=== PATIENT | male | born 1955 | race Two or more races ===

== ENCOUNTER 2024-05-05 15:06 | Observation (INO) | payer OTHER, MEDICAID, MEDICARE, SELFPAY ==
[2024-05-05] VITALS (21 sets, daily range): BP systolic 123–215; BP diastolic 68–103; PULSE 56–74; RESP 16–95; TEMP 35.9–36.9; O2SAT 95–99; BMI 28.3
--- NOTE | 2024-05-05 15:20 | XR_ITS ---
Examination: AP chest single view Technique one AP portable sitting chest single view Exam date and time: May 05, 2024 1613 hours Comparison October 08, 2023 INDICATIONS: Syncope today. FINDINGS: Moderate CHF Mild enlargement cardiac contour Prominent vascular congestion with perihilar basilar edema Prominent osteopenia IMPRESSION: Moderate CHF
--- NOTE | 2024-05-05 15:21 | EDNOTE_ITS ---
ED General RME/HPI General Chief complaint: Syncope / Near Syncope Stated complaint: SYNCOPE Time Seen by Provider: 05/05/24 15:20 Arrival date/time: 05/05/24 15:06 CC: Syncope generalized weakness HPI patient presents to the ER via EMS report the patient had a syncopal event prior to dialysis, refused initial EMS response for coming to the emergency room however things family members convinced the patient to come in for generalized weakness. EMS reports stable vital signs with a mild bit of bradycardia EMS also report informing the patient is a full code but is considering become a DNR as he does not like the way dialysis makes him feel weak after dialysis. Patient has missed dialysis on Sunday per report from family members and now is missed today. The patient is awake alert stating that he has only chronic right shoulder pain and chronic back pain. 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 Related Data Home Medications ?Medication ?Instructions ?Recorded ?Confirmed allopurinol 100 mg tablet 100 mg PO QDAY 10/31/22 02/11/24 tamsulosin 0.4 mg capsule 0.4 mg PO QDAY 10/31/22 02/11/24 folic acid 1 mg tablet 1 mg PO QDAY 12/19/23 02/11/24 furosemide 40 mg tablet 40 mg PO QAM 12/19/23 02/11/24 gabapentin 400 mg capsule 400 mg PO BID 12/19/23 02/11/24 vitamin B complex-vitamin C-folic 1 tab PO QDAY 12/19/23 02/11/24 acid 0.8 mg tablet (Nydia-Seun) insulin glargine 100 unit/mL (3 25 unit subcut QA 02/11/24 02/11/24 mL) subcutaneous pen (Lantus Solostar U-100 Insulin) lisinopril 5 mg tablet 5 mg PO QDAY 02/11/24 02/11/24 Previous Rx's ?Medication ?Instructions ?Recorded pantoprazole 40 mg tablet,delayed 40 mg PO QDAY #0 tabs 08/22/22 release atorvastatin 80 mg tablet 80 mg PO QPM #30 tabs 12/25/23 clopidogrel 75 mg tablet (Plavix) 75 mg PO QDAY #30 tabs 12/25/23 hydralazine 10 mg tablet 10 mg PO BID PRN hypertension #60 12/25/23 tabs insulin glargine 100 unit/mL (3 27 unit (0.27 mL) subcut QPM #15 mL 12/25/23 mL) subcutaneous pen (Lantus Solostar U-100 Insulin) insulin lispro 100 unit/mL 6 unit (0.06 mL) subcut TID #10 mL 12/25/23 subcutaneous solution (Admelog U-100 Insulin lispro) levetiracetam 500 mg tablet 500 mg PO BID #60 tabs 12/25/23 Allergies Allergy/AdvReac Type Severity Reaction Status Date / Time No Known Allergies Allergy Verified 12/25/23 13:27 Review of Systems Review of Systems Narrative Review of Systems: GEN: No fever, no chills, no weight loss EYES: No discharge, no visual changes, no pain HEENT: No ear pain, no congestion, no sore throat PULM: No shortness of breath, no cough, no congestion CV: No chest pain, no dyspnea on exertion, no palpitations GI: No nausea, no vomiting, no diarrhea, no pain, no constipation : No frequency, no urgency, no dysuria MUSC/SKEL: No joint pain, no back pain SKIN: No rash PSYCH: No hallucinations, no depression HEME/LYMPH: No easy bleeding or bruising tendencies NEURO: + weakness, no headache Past Medical History Past Medical History NEUROLOGIC: Positive Neurological Disorders, Cerebrovascular Accident and Seizures CARDIAC: Positive Cardiac Disorders, Hypercholesterolemia, Congestive Heart Failure, Edema and Hypertension RESPIRATORY: Positive Pneumonia; Negative Chronic Obstructive Pulmonary Disease (COPD) GASTROINTESTINAL: Positive Gastrointestinal Disorders, Pancreatitis and Gastroesophageal Reflux Disease; Negative Hepatitis GENITOURINARY: Positive Genitourinary Disorders, Renal Disease, Dialysis and Benign Prostatic Hyperplasia MUSCULOSKELETAL: Positive Musculoskeletal Disorders and Gout ENDOCRINE: Positive Endocrine Disorders and Diabetes Mellitus Type 2; Negative Diabetes Mellitus Type 1 HEMATOLOGIC: Positive Blood Disorders and Anemia PSYCHO/SOCIAL: Positive Recreational Drug Use and Anxiety OTHER HISTORY: Positive Hospitalization, Shingles, Chicken Pox and Measles; Negative Autoimmune Disease, Blood Transfusions, Blood Transfusion Reaction, Anesthesia Reactions or Cancer Family History FAMILY HISTORY: Negative Family Psychiatric Problems, Family Respiratory Disorders, Family Cardiac Disorders, Family Gastrointestinal Problems, Family Cancer, Family Surgery or Family Anesthesia Reaction Social History SMOKING STATUS: Former smoker SUBSTANCE USE: does not use ED Exam Narrative Physical exam: [General: Not in any acute distress Head normocephalic HEENT: Within acceptable limits Neck is supple nontender Chest equal chest rise nontender to palpation Respiratory: Clear to auscultation no wheezes crackles or rubs CV: Rate rhythm is regular no murmurs rubs or clicks Abdomen is distended secondary to body habitus soft nontender no masses positive bowel sounds all 4 quadrants Back: No CVA tenderness no spinous process tenderness from cervical spine thoracic and lumbar spine Skin: Intact no petechiae rash induration ulceration or crepitus Extremities: Moving all extremity against resistance cap refill less than 2 seconds neurosensory intact. Bilateral lower extremity edema. Neuro: Awake alert oriented x3 Glascow coma 15 no focal deficits] Course Course Course Narrative: CC: Patient states shows a significant hyperkalemia 6.0 with a creatinine of 6.9 a BUN of 110, patient's case discussed with Dr. Hathaway who states that the patient wishes dialysis the patient to be put and she will consult for inpatient dialysis. Patient has agreed to the plan patient's case discussed with Dr. Chu who agrees to accept the patient for admission. Quality Measures none Orders Category Date Time Status EKG (ED ONLY) *Do not use* NOW Care 05/05/24 15:20 Completed Consult to Nephrology Stat Cons 05/05/24 17:41 Ordered EKG (ED Only) Stat Exams 05/05/24 15:20 Ordered XR chest 1V Stat Exams 05/05/24 15:20 Completed B-Type Natriuretic Peptide Stat Lab 05/05/24 16:06 Completed CBC Stat Lab 05/05/24 16:06 Completed Comprehensive Metabolic Panel Stat Lab 05/05/24 16:06 Completed Drug Screen,Urine Stat Lab 05/05/24 15:57 Completed LDH (Lactate Dehydrogenase) Stat Lab 05/05/24 16:06 Completed Magnesium Stat Lab 05/05/24 16:06 Completed Partial Thromboplastin Time Stat Lab 05/05/24 16:06 Completed Prothrombin Time with INR Stat Lab 05/05/24 16:06 Completed Troponin I Stat Lab 05/05/24 16:06 Completed Urinalysis Stat Lab 05/05/24 15:57 Completed Calcium Gluconate 10% Inj Med 05/05/24 17:28 Discontinued 1 gm IV X1 ONE Dextrose 50% Syr [D50w Syringe Abboject] Med 05/05/24 17:53 Discontinued 50 ml IV X1 ONE Insulin Regular Med 05/05/24 17:28 Discontinued 5 unit IV X1 ONE Vital Signs Vital signs: Vital Signs Temperature 97.5 F 05/05/24 15:07 Pulse Rate 56 L 05/05/24 15:07 Respiratory Rate 16 05/05/24 15:07 Blood Pressure 138/70 H 05/05/24 15:07 Pulse Oximetry (%) 97 05/05/24 15:07 Oxygen Delivery Method Room Air 05/05/24 15:07 [facility] Patient data External records reviewed:: [facility] previous records and EMS form Clinical information provided by:: patient and EMS Social determinants that could affect healthcare access:: none Patient has the following chronic illnesses:: ESRD dialysis A-fib diabetes renal failure How is presenting disease/condition affected by chronic disease/condition?: e xacerbated by Evaluation data The following diagnostics were reviewed and interpreted by me:: lab results, radiology exam(s) and EKG tracing(s) Lab and/or radiology exams considered but not ordered:: CBC shows stable anemia no leukocytosis or thrombocytopenia CMP shows significant electrolyte imbalances including hyperkalemia at 6.0, BUN greater than 110 and a creatinine of 6.9. No transaminitis or T. bili elevation Troponin is negative Interpretation Summary: Patient's case discussed with Dr. Hathaway, who agrees to consult for nephrology, Dr. Chu agrees to accept the patient for admission Medications Medications considered but not ordered:: None Medication administrations:: Medication Administration History Acetaminophen (Acetaminophen 325 Mg Tablet) 650 mg PO Q6H PRN PRN Reason: Pain (1-4) and Fever >101.5 Stop: 06/04/24 18:23 Allopurinol (Allopurinol 100 Mg Tablet) 100 mg PO DAILY AROLDO Stop: 06/05/24 08:59 Last Admin: 05/06/24 09:50 Dose: 100 mg Documented By: ISAÍAS Atorvastatin Calcium (Atorvastatin Calcium 20 Mg Tablet) 80 mg PO HS AROLDO Stop: 06/04/24 20:59 Last Admin: 05/05/24 23:16 Dose: 80 mg Documented By: SIM Clopidogrel Bisulfate (Clopidogrel Bisulfate 75 Mg Tablet) 75 mg PO DAILY AROLDO Stop: 06/05/24 08:59 Last Admin: 05/06/24 08:15 Dose: 75 mg Documented By: ISAÍAS Dextrose (Dextrose 50%-Water Inj 50 Ml Syringe) 25 ml IV Q15MIN PRN PRN Reason: BG 50-70 responsive npo pt Stop: 06/04/24 19:12 Dextrose (Dextrose 50%-Water Inj 50 Ml Syringe) 50 ml IV Q15MIN PRN PRN Reason: BG <50 OR BG <70 & pt unresponsive Stop: 06/04/24 19:12 Furosemide (Furosemide 40 Mg Tablet) 40 mg PO QDAY AROLDO Stop: 06/04/24 18:29 Last Admin: 05/06/24 08:15 Dose: 40 mg Documented By: Admin: 05/05/24 23:33 Dose: 40 mg Documented By: SIM Gabapentin (Gabapentin 300 Mg Capsule) 300 mg PO BID [facility] Stop: 06/04/24 20:59 Last Admin: 05/06/24 08:14 Dose: 300 mg Documented By: Admin: 05/05/24 23:16 Dose: 300 mg Documented By: SIM Glucagon (Glucagon Inj 1 Mg Vial) 1 mg IM Q15MIN PRN PRN Reason: BG <70, and no IV access Insulin Glargine (Insulin Glargine (Lantus) 5 Unit/0.05 Ml (Per 5 Units)) 20 unit SC [facility] Stop: 06/05/24 20:59 Insulin Human Lispro (Insulin Lispro (Admelog) 1 Unit/0.01 Ml Unit) 0 unit SC AC [facility]; Protocol Stop: 06/05/24 11:29 Insulin Human Lispro (Insulin Lispro (Admelog) 1 Unit/0.01 Ml Unit) 3 unit SC AC [facility] Stop: 06/05/24 08:14 Last Admin: 05/06/24 08:19 Dose: 3 unit Documented By: ISAÍAS Co-signed By: EITAN Levetiracetam (Levetiracetam 250 Mg Tablet) 500 mg PO BID [facility] Stop: 06/04/24 20:59 Last Admin: 05/06/24 08:16 Dose: 500 mg Documented By: Admin: 05/05/24 23:16 Dose: 500 mg Documented By: SIM Ondansetron HCl (Ondansetron Inj 2 Mg/Ml Inj 2 Ml) 4 mg IV Q6H PRN; Protocol PRN Reason: NAUSEA OR VOMITING Stop: 06/04/24 18:23 Pantoprazole Sodium (Pantoprazole 40 Mg Tablet) 40 mg PO DAILY AROLDO Stop: 06/05/24 08:59 Last Admin: 05/06/24 08:16 Dose: 40 mg Documented By: ISAÍAS Discontinued Medications Calcium Gluconate (Calcium Gluconate 10% Inj 1 Gm/10 Ml Vial) 1 gm IV X1 ONE Stop: 05/05/24 17:29 Last Admin: 05/05/24 17:46 Dose: 1 gm Documented By: RADHA Comments: pushed over 3 minutes Clonidine (Clonidine Hcl 0.1 Mg Tablet) 0.2 mg PO X1 ONE Stop: 05/05/24 21:36 Last Admin: 05/05/24 21:39 Dose: 0.2 mg Documented By: MM Dextrose (Dextrose 50%-Water Inj 50 Ml Syringe) 50 ml IV X1 ONE Stop: 05/05/24 17:54 Last Admin: 05/05/24 17:56 Dose: 50 ml Documented By: RADHA Epoetin Shiraz (Epoetin Shiraz-Epbx Inj 10,000 Unit/Ml Vial (Esrd)) 10,000 unit SC X1 ONE Stop: 05/05/24 18:40 Last Admin: 05/06/24 07:06 Dose: Not Given Documented By: SIM Non-Admin Reason: Discontinued Heparin Sodium (Porcine) (Heparin Sod Inj 5000 Unit/Ml Vial) 5,000 unit SC Q8HR [facility] Stop: 05/19/24 21:59 Insulin Glargine (Insulin Glargine (Lantus) 5 Unit/0.05 Ml (Per 5 Units)) 15 unit SC HS [facility] Stop: 06/04/24 20:59 Last Admin: 05/05/24 23:36 Dose: 15 unit Documented By: SIM Co-signed By: Insulin Human Lispro (Insulin Lispro (Admelog) 1 Unit/0.01 Ml Unit) 3 unit SC TIDWM [facility] Stop: 06/05/24 07:59 Last Admin: 05/06/24 08:18 Dose: Not Given Documented By: ISAÍAS Non-Admin Reason: Discontinued Insulin Human Lispro (Insulin Lispro (Admelog) 1 Unit/0.01 Ml Unit) 0 unit SC ACHS [facility]; Protocol Stop: 06/04/24 20:59 Last Admin: 05/06/24 08:18 Dose: Not Given Documented By: ISAÍAS Non-Admin Reason: Discontinued Admin: 05/05/24 23:11 Dose: Not Given Documented By: SIM Non-Admin Reason: Per Protocol Insulin Human Regular (Insulin Hum Regular 1 Unit/0.01 Ml (Per Unit)) 5 unit IV X1 ONE Stop: 05/05/24 17:29 Last Admin: 05/05/24 17:41 Dose: 5 unit Documented By: RADHA Co-signed By: LOIDA None Consultations Consultation(s) initiated? (list below): Yes Consultation #1 (Physician, Specialty, Details): Mag Time: 17:43 Diagnosis Differential Diagnosis ED Complaint MDM: ESRD dialysis hyperkalemia Most likely diagnosis given after review of the tests above:: ESRD dialysis hyperkalemia Admission Indicated Admission indicated?: indicated Explain why admission is indicated or not indicated:: Quires further medical management Admission Request Was there a request for admission?: No Disposition Plan Disposition Plan: Admit Medical Decision Making Differential Diagnosis Differential Diagnosis: ESRD dialysis hyperkalemia Lab Data 05/06/24 04:37 05/06/24 04:37 Labs: Lab Results 05/05/24 05/05/24 Range/Units 15:57 16:06 WBC 4.0 (3.8-10.6) Thou/mm3 RBC 3.32 L (4.50-5.90) Miln/mm3 Hgb 10.0 L (13.5-16.0) g/dL Hct 29.9 L (41.0-53.0) % MCV 90 (80-100) fL MCH 30.1 (25.0-35.0) pg MCHC 33.4 (31.0-37.0) g/dl RDW Std Deviation 48.9 H (35.1-43.9) fL Plt Count 72 L (140-440) Thou/mm3 Neut % (Auto) 64 (37-80) % Lymph % (Auto) 23 (10-50) % [place] % (Auto) 9 (0-12) % Eos % (Auto) 3 (0-10) % Baso % (Auto) 1 (0-2.5) % Neut # (Auto) 2.6 (1.8-7.7) Thou/mm3 Lymph # (Auto) 0.9 L (1.0-4.8) Thou/mm3 [place] # (Auto) 0.4 (0.0-0.8) Thou/mm3 Eos # (Auto) 0.1 (0.0-0.5) Thou/mm3 Baso # (Auto) 0.0 (0.0-0.2) Thou/mm3 Immature Gran # (Auto) 0.00 (0.00-0.00) Thou/mm3 Absolute Nucleated RBC 0.00 (0.00-0.00) Thou/mm3 Immature Gran % 0 (0-0) % Nucleated RBC % 0 (0) /100 WBC PT 12.0 (9.0-12.2) Seconds INR 1.1 (0.9-1.3) APTT 31.6 (22.0-36.0) Seconds Sodium 132 L (136-145) mMol/L Potassium 6.0 H (3.4-5.1) mMol/L Chloride 100 (98-107) mMol/L Carbon Dioxide 17.9 L (20.0-31.0) mMol/L Anion Gap 14 (7-16) BUN 112 H* (9-23) mg/dL Creatinine 6.9 H* (0.6-1.3) mg/dL Estim Creat Clear Calc Not Performed. eGFR 8 L* (60 - ) See Note BUN/Creatinine Ratio 16 (12-20) Ratio Glucose 300 H (74-106) mg/dL Calculated Osmolality 311 H (275-295) Calcium 9.2 (8.3-10.6) mg/dL Corrected Calcium 9.2 (8.5-10.1) mg/dL Magnesium 2.8 H (1.6-2.6) mg/dL Total Bilirubin 0.6 (0.3-1.2) mg/dL AST 49 H (0-34) U/L ALT 67 H (10-49) U/L Alkaline Phosphatase 523 H (46-116) U/L Lactate Dehydrogenase 268 H (120-246) U/L Troponin I 0.034 (0.0-0.045) ng/mL B-Natriuretic Peptide 873 H* (0-100) pg/mL Total Protein 7.6 (5.7-8.2) gm/dL Albumin 4.3 (3.4-4.8) gm/dL Globulin 3.3 (2.3-3.5) gm/dL Albumin/Globulin Ratio 1.3 (1.2-2.2) Ur Collection Type Clean Catch Urine Color Yellow (Lt Yel-Yel) Urine Clarity Hazy (Clear/Hazy) Urine pH 5.5 (5.0-7.0) Ur Specific [place] 1.021 (1.001-1.035) Urine Protein 3+ A (Neg - Trace) Urine Glucose (UA) 1+ A (Negative) Urine Ketones Negative (Negative) Urine Blood Negative (Negative) Urine Nitrite Negative (Negative) Urine Bilirubin Negative (Negative) Urine Urobilinogen (Auto) Negative (0.0-1.0) mg/dL Ur Leukocyte Esterase Negative (Negative) Urine RBC 6 H (0-3) /hpf Urine WBC 1 (0-5) /hpf Ur Squamous Epith Cells < 1 (0-5) /hpf Ur Transition Epith Cell < 1 (0-5) /hpf Amorphous Crystals Present A (Absent) Urine Bacteria None (None) Hyaline Casts 1 (0-1) /hpf Urine Sperm Present A (None) Urine Opiates Screen Negative (Negative) Urine Fentanyl Screen Negative (Negative) Ur Barbiturates Screen Negative (Negative) U Amphetamin/Meth Scrn Negative (Negative) U Benzodiazepines Scrn Negative (Negative) U Cocaine Metab Screen Negative (Negative) U Marijuana (THC) Screen Negative (Negative) Misc Test Result Platelets confirmed Discharge Plan Plan Patient Disposition: Other Care w/in Hosp ([facility]) Patient condition on transfer: Stable Problem List Clinical Impression: ESRD (end stage renal disease) MD Attestation MD Attestation The patient was seen by the midlevel practitioner. I, the co-signing physician, was present during the entire ER visit. While I did not physically examine the patient, I was available for consultation as needed.
--- NOTE | 2024-05-05 15:46 | PC.NURSE ---
Brought in by EMS s/p syncopal episode at the dialysis center; per report, pt denies LOC, but per bystanders, pt's eyes rolled back. Pt has hx of 4 CVAs in the past, DM, hyperlipidemia, and renal failure. Pt has fistula to L arm for dialysis, but per daughter at bedside, he hasn't received dialysis in 7 days. He missed his dialysis today too because he passed out. Pt connected to monitors at this time.
[2024-05-05 16:15] LABS: Collection Type, Urine Clean Catch
--- NOTE | 2024-05-05 16:17 | PC.NURSE ---
Daughter at bedside, Gailmagi Howard; per daughter, my dad's daily fluid limit intake is 2 Liters. My dad is also DNR for his code status.
[2024-05-05 16:21] LABS: Basophils % (Auto) 1 % (0-2.5); Eosinophils # (Auto) 0.1 Thou/mm3 (0.0-0.5); Eosinophils % (Auto) 3 % (0-10); Hematocrit 29.9 % (41.0-53.0); Immature Granulocytes % (Auto) 0 % (0-0); Lymphocytes # (Auto) 0.9 Thou/mm3 (1.0-4.8); Lymphocytes % (Auto) 23 % (10-50); Mean Corpuscular HGB Conc 33.4 g/dl (31.0-37.0); Mean Corpuscular Hemoglobin 30.1 pg (25.0-35.0); Mean Corpuscular Volume 90 fL (80-100); Monocytes # (Auto) 0.4 Thou/mm3 (0.0-0.8); Monocytes % (Auto) 9 % (0-12); Neutrophils # (Auto) 2.6 Thou/mm3 (1.8-7.7); Neutrophils % (Auto) 64 % (37-80); Nucleated Red Blood Cell % 0 /100 WBC (0); RDW Standard Deviation 48.9 fL (35.1-43.9); Red Blood Count 3.32 Miln/mm3 (4.50-5.90)
[2024-05-05 16:29] LABS: Platelet Count 72 Thou/mm3 (140-440)
[2024-05-05 16:35] LABS: INR 1.1 (0.9-1.3); Partial Thromboplastin Time 31.6 Seconds (22.0-36.0)
[2024-05-05 16:37] LABS: Amphetamine/Methamp Scrn,U Negative (Negative); Barbiturate Screen,Urine Negative (Negative); Benzodiazepines Screen,Urine Negative (Negative); Benzoylecgonine Screen, Ur Negative (Negative); Fentanyl Screen,Urine Negative (Negative); Opiate Screen,Urine Negative (Negative); THC Screen,Urine Negative (Negative)
[2024-05-05 16:38] LABS: Amorphous Crystals,Urine Present (Absent); Bilirubin,Urine Negative (Negative); Blood,Urine Negative (Negative); Color,Urine Yellow (Lt Yel-Yel); Glucose, Urine 1+ (Negative); Hyaline Casts,Urine 1 /hpf (0-1); Ketones,Urine Negative (Negative); Leukocyte Esterase,Urine Negative (Negative); Nitrite,Urine Negative (Negative); PH,Urine 5.5 (5.0-7.0); Protein,Urine 3+ (Neg - Trace); RBC,Urine 6 /hpf (0-3); Specific Gravity,Urine 1.021 (1.001-1.035); Squamous Epithelial Cell,Urine < 1 /hpf (0-5); Transitional Epi Cells,Urine < 1 /hpf (0-5); Urobilinogen,Urine Negative mg/dL (0.0-1.0); WBC,Urine 1 /hpf (0-5)
[2024-05-05 16:42] LABS: Clarity,Urine Hazy (Clear/Hazy); Sperm,Urine Present
[2024-05-05 16:45] LABS: B-Type Natriuretic Peptide 873 pg/mL (0-100)
[2024-05-05 16:50] LABS: Alanine Aminotransferase 67 U/L (10-49); Albumin, Serum 4.3 gm/dL (3.4-4.8); Albumin/Globulin Ratio 1.3 (1.2-2.2); Alkaline Phosphatase 523 U/L (46-116); Anion Gap 14 (7-16); Aspartate Amino Transferase 49 U/L (0-34); BUN/Creatinine Ratio 16 Ratio (12-20); Bilirubin,Total 0.6 mg/dL (0.3-1.2); Calcium 9.2 mg/dL (8.3-10.6); Calcium (Corrected) 9.2 mg/dL (8.5-10.1); Carbon Dioxide 17.9 mMol/L (20.0-31.0); Chloride 100 mMol/L (98-107); Creatinine (Component) 6.9 mg/dL (0.6-1.3); Globulin 3.3 gm/dL (2.3-3.5); Glucose 300 mg/dL (74-106); LDH (Lactate Dehydrogenase) 268 U/L (120-246); Magnesium 2.8 mg/dL (1.6-2.6); Osmolality,Calculated 311 (275-295); Sodium 132 mMol/L (136-145); Total Protein 7.6 gm/dL (5.7-8.2); Troponin I 0.034 ng/mL (0.0-0.045); eGFR 8 See Note
[2024-05-05 16:57] LABS: Slide Review Platelets confirmed
[2024-05-05 17:09] LABS: Blood Urea Nitrogen 112 mg/dL (9-23)
[2024-05-05] MEDS: INSULIN HUM REGULAR 1 UNIT/0.01 ML (PER UNIT) 5 UNIT IV (17:41)
[2024-05-05] MEDS: CALCIUM GLUCONATE 10% INJ 1 GM/10 ML VIAL IV (17:46)
[2024-05-05] MEDS: DEXTROSE 50%-WATER INJ 50 ML SYRINGE IV (17:56)
--- NOTE | 2024-05-05 19:19 | PD.RESHP ---
Documentation for date of: 05/05/24 HPI History of Present Illness History of present illness: The patient is a 69-year-old male with a past medical history of hypertension, hyperlipidemia, diabetes, ESRD on dialysis M/F, seizure disorder, CVA who was brought into the ED on 05/05/2024 after he was said to have this syncopal episode prior to dialysis. Per patient, he denies fainting and states that he only felt unsteady for a bit but family members are convinced that the patient had a syncopal episode and insisted that he be brought in to ED for generalized weakness. Patient had missed his dialysis session on Sunday due to these incidents has missed a session today. On interview with the patient, he denies any symptoms states he is not felt weak recently, denies chest pain, shortness of breath, cough, abdominal pain or any change in his health status acutely. ED course: On admission to the ED, the patient was noted to be afebrile, normotensive and saturating 96% on room air. Labs showed WBC 4 Hgb 10 PLT 72 NA 130 2K6.0 bicarb 17.9 BUN 112 CR 6.9 EGFR 8 glucose 300 calcium 9.2 mag 2.8 slightly elevated AST and ALT with elevated ALP, elevated LDH, BNP of 873. UA showed 3+ protein and 1+ glucose with amorphous crystals and 6 RBC and U-Tox was negative. Chest x-ray showed some pulmonary vascular congestion consistent with moderate CHF. The patient's personal injury law specialist Dr. Hathaway was consulted for inpatient dialysis and he was admitted for syncope workup and management. Review of Systems Review of Systems Systems Reviewed: All systems reviewed, normal except as documented Exam Vital Signs Temp Pulse Resp BP Pulse Ox O2 Del Method 97.6 F 60 19 155/83 H 95 Room Air 05/05/24 18:05 05/05/24 19:14 05/05/24 18:55 05/05/24 19:14 05/05/24 18:05 05/05/24 18:05 Narrative Exam GENERAL: AAOX3 NEURO: DESIGN TEACHER grossly intact, moves extremities x4 HEENT: Moist mucosa. Eyes open, symmetrical, & clear CARDIO: No chest pain on palpation. Heart RRR, no obvious murmurs PULM: No noted coughing/dyspnea. Crackles bilaterally GI: Abdomen soft, nondistended, no pain on palpation. BSx4 URO/ADJUNCT PHYSICS INSTRUCTOR:: No further abnormalities noted SKIN/MSK/EXT: Bilateral pitting edema 2+. AV fistula noted on left arm Results: Labs 05/06/24 04:37 05/06/24 04:37 Labs: Short CBC 05/05/24 Range/Units 16:06 WBC 4.0 (3.8-10.6) Thou/mm3 Hgb 10.0 L (13.5-16.0) g/dL Hct 29.9 L (41.0-53.0) % Plt Count 72 L (140-440) Thou/mm3 BMP 05/05/24 16:06 Sodium 132 L Potassium 6.0 H Chloride 100 Carbon Dioxide 17.9 L BUN 112 H* Creatinine 6.9 H* Glucose 300 H Calcium 9.2 Cardiac Enzymes 05/05/24 Range/Units 16:06 Troponin I 0.034 (0.0-0.045) ng/mL Liver Function 05/05/24 Range/Units 16:06 Total Bilirubin 0.6 (0.3-1.2) mg/dL AST 49 H (0-34) U/L ALT 67 H (10-49) U/L Alkaline Phosphatase 523 H (46-116) U/L Albumin 4.3 (3.4-4.8) gm/dL Urine 05/05/24 Range/Units 15:57 Urine Color Yellow (Lt Yel-Yel) Urine Clarity Hazy (Clear/Hazy) Urine pH 5.5 (5.0-7.0) Ur Specific [place] 1.021 (1.001-1.035) Urine Protein 3+ A (Neg - Trace) Urine Glucose (UA) 1+ A (Negative) Quality Measures Quality Measures none Advance care planning discussed with:: patient Medications Home Medications and Allergies Home Medications ?Medication ?Instructions ?Recorded ?Confirmed ?Type allopurinol 100 mg tablet 100 mg PO QDAY 10/31/22 02/11/24 History tamsulosin 0.4 mg capsule 0.4 mg PO QDAY 10/31/22 02/11/24 History folic acid 1 mg tablet 1 mg PO QDAY 12/19/23 02/11/24 History furosemide 40 mg tablet 40 mg PO QAM 12/19/23 02/11/24 History gabapentin 400 mg capsule 400 mg PO BID 12/19/23 02/11/24 History vitamin B complex-vitamin C-folic 1 tab PO QDAY 12/19/23 02/11/24 History acid 0.8 mg tablet (Nydia-Seun) insulin glargine 100 unit/mL (3 25 unit subcut QAM 02/11/24 02/11/24 History mL) subcutaneous pen (Lantus Solostar U-100 Insulin) lisinopril 5 mg tablet 5 mg PO QDAY 02/11/24 02/11/24 History Allergies Allergy/AdvReac Type Severity Reaction Status Date / Time No Known Allergies Allergy Verified 12/25/23 13:27 Visit Medications Acetaminophen (Acetaminophen 325 Mg Tablet) 650 mg PO Q6H PRN PRN Reason: Pain (1-4) and Fever >101.5 Stop: 06/04/24 18:23 Allopurinol (Allopurinol 100 Mg Tablet) 100 mg PO DAILY AROLDO Stop: 06/05/24 08:59 Atorvastatin Calcium (Atorvastatin Calcium 20 Mg Tablet) 80 mg PO HS AROLDO Stop: 06/04/24 20:59 Clopidogrel Bisulfate (Clopidogrel Bisulfate 75 Mg Tablet) 75 mg PO DAILY AROLDO Stop: 06/05/24 08:59 Dextrose (Dextrose 50%-Water Inj 50 Ml Syringe) 25 ml IV Q15MIN PRN PRN Reason: BG 50-70 responsive npo pt Stop: 06/04/24 19:12 Dextrose (Dextrose 50%-Water Inj 50 Ml Syringe) 50 ml IV Q15MIN PRN PRN Reason: BG <50 OR BG <70 & pt unresponsive Stop: 06/04/24 19:12 Furosemide (Furosemide 40 Mg Tablet) 40 mg PO QDAY AROLDO Stop: 06/04/24 18:29 Glucagon (Glucagon Inj 1 Mg Vial) 1 mg IM Q15MIN PRN PRN Reason: BG <70, and no IV access Insulin Glargine (Insulin Glargine (Lantus) 5 Unit/0.05 Ml (Per 5 Units)) 15 unit SC HS AROLDO Stop: 06/04/24 20:59 Insulin Human Lispro (Insulin Lispro (Admelog) 1 Unit/0.01 Ml Unit) 3 unit SC TIDWM AROLDO Stop: 06/05/24 07:59 Insulin Human Lispro (Insulin Lispro (Admelog) 1 Unit/0.01 Ml Unit) 0 unit SC ACHS AROLDO; Protocol Stop: 06/04/24 20:59 Levetiracetam (Levetiracetam 250 Mg Tablet) 500 mg PO BID [facility] Stop: 06/04/24 20:59 Ondansetron HCl (Ondansetron Inj 2 Mg/Ml Inj 2 Ml) 4 mg IV Q6H PRN; Protocol PRN Reason: NAUSEA OR VOMITING Stop: 06/04/24 18:23 Discontinued Medications Calcium Gluconate (Calcium Gluconate 10% Inj 1 Gm/10 Ml Vial) 1 gm IV X1 ONE Stop: 05/05/24 17:29 Last Admin: 05/05/24 17:46 Dose: 1 gm Dextrose (Dextrose 50%-Water Inj 50 Ml Syringe) 50 ml IV X1 ONE Stop: 05/05/24 17:54 Last Admin: 05/05/24 17:56 Dose: 50 ml Epoetin Shiraz (Epoetin Shiraz-Epbx Inj 10,000 Unit/Ml Vial (Esrd)) 10,000 unit SC X1 ONE Stop: 05/05/24 18:40 Heparin Sodium (Porcine) (Heparin Sod Inj 5000 Unit/Ml Vial) 5,000 unit SC Q8HR AROLDO Stop: 05/19/24 21:59 Insulin Human Regular (Insulin Hum Regular 1 Unit/0.01 Ml (Per Unit)) 5 unit IV X1 ONE Stop: 05/05/24 17:29 Last Admin: 05/05/24 17:41 Dose: 5 unit Assessment & Plan Plan Summary: The patient is a 69-year-old male with a past medical history of hypertension, hyperlipidemia, diabetes, ESRD on dialysis M/F, seizure disorder, CVA who was brought into the ED on 05/05/2024 after he was said to have had a syncopal episode prior to dialysis. The patient was admitted for syncope workup and management as well as inpatient hemodialysis. #Syncope The patient presented after he was said to have had a syncopal episode prior to session of dialysis today. Per patient, he denies fainting or feeling weak and said he was just unsteady but family members wanted him to be seen for generalized weakness. Patient does have a history of CVA but does not have any significant focal deficits and states that he is able to ambulate properly with his walker still. Blood pressure on admission was 138/70 with a heart rate of 82. EKG done showed sinus rhythm. Plan: -Admit to [facility] Obs -Consider orthostatic vitals if blood pressure drops -Echocardiogram #ESRD on dialysis M/F Patient has a history of ESRD and is being followed by Dr. Hathaway with dialysis days /. He missed his dialysis session on Sunday and due to syncopal episode missed last session today. Plan: -Nephro consulted, appreciate recommendations -Scheduled for inpatient dialysis -Lasix PO 40mg Qday -Avoid nephrotoxic medications -Renally dose all medications #History of hypertension #History of hyperlipidemia #History of CVA The patient is on atorvastatin 80 mg, Plavix 75 mg and lisinopril 10 mg at home. Due to concern of syncopal episodes as the blood pressure is relatively normal at this point, we will hold off on blood pressure medications and restart others. -Restarted atorvastatin and Plavix #History of type II DM Patient has a history of type II DM, last A1c from 6 months ago was 12.4. According to him, he does take 15 units with meals and 20 to 25 units at night. Plan: -Insulin glargine 15 units -Insulin lispro with meals 30 units -ISS -Hypoglycemic protocols in place -Blood glucose check ACHS #History of seizure disorder The patient has a history of seizure disorder and is on Keppra 500 mg twice daily -Restart home medications Health maintenance: Dispo: Med telemetry Diet: Renal GI: Not indicated DVT: SCDs, Jane: None Lines: Peripheral Med Rec: Pending, f/u PT: Ordered Code: DNR Case was discussed with attending physician, Dr Kimberley Delgado MD PGY-1 Attending Provider Attestation/Addendum I have discussed and was present for the essential components of the history, physical examination, diagnosis, and treatment plan with the resident. I agree with the patient's care as documented by the resident and amended herein by me. Rodríguez Chu DO. Although this document has been carefully reviewed, there may still be some phonetic and other typographical errors. These errors are purely grammatical due to imperfections in the software program and should not be construed in any way to compromise the substance of the patient's medical care during this visit.
--- NOTE | 2024-05-05 19:20 | ECHO_ITS ---
Transthoracic Echo Report Ht (in): 65 Wt (lb): 170 Exam Location: ER Status: Inpatient Financial Operations Analyst: Kinga Ignacio Indications: Procedure Performed: BP: 158 / 76 HR: 68 Rhythm: Sinus Technical Quality: Fair MEASUREMENTS (Male / Female) Normal Values 2D ECHO LV Diastolic Diameter PLAX 4.6 cm 4.2 - 5.9 / 3.9 - 5.3 cm LV Systolic Diameter PLAX 3.2 cm IVS Diastolic Thickness 0.8 cm 0.6 - 1.0 / 0.6 - 0.9 cm LVPW Diastolic Thickness 1.0 cm 0.6 - 1.0 / 0.6 - 0.9 cm LV Relative Wall Thickness 0.4 LVOT Diameter 1.9 cm LA Volume Index 31.0 cm?/m? 16 - 28 cm?/m? Ascending Aorta Diameter 3.0 cm M-MODE Aortic Root Diameter MM 2.6 cm LA Systolic Diameter MM 4.7 cm LA Ao Ratio MM 1.8 AV Cusp Separation MM 1.9 cm DOPPLER AV Peak Velocity 146.0 cm/s AV Peak Gradient 8.5 mmHg AV Mean Gradient 5.0 mmHg AV Velocity Time Integral 36.0 cm LVOT Peak Velocity 113.0 cm/s LVOT Peak Gradient 5.1 mmHg LVOT Velocity Time Integral 25.5 cm LVOT Cardiac Index 2586.2 cm?/min?m? AV Area Cont Eq vti 2.0 cm? AV Area Cont Eq pk 2.2 cm? MV Peak Velocity 119.0 cm/s MV Peak Gradient 5.7 mmHg MV Mean Velocity 64.4 cm/s MV Mean Gradient 2.0 mmHg MV Area PHT 3.9 cm? MR Peak Velocity 431.0 cm/s MR Peak Gradient 74.3 mmHg Mitral E Point Velocity 115.0 cm/s Mitral A Point Velocity 72.4 cm/s Mitral E to A Ratio 1.6 LV E' Lateral Velocity 9.3 cm/s Mitral E to LV E' Lateral Ratio 12.4 LV E' Septal Velocity 7.1 cm/s Mitral E to LV E' Septal Ratio 16.3 TR Peak Velocity 273.0 cm/s TR Peak Gradient 29.8 mmHg FINDINGS Left Ventricle Normal left ventricular size, wall thickness, systolic function with no obvious regional wall motion abnormalities. The ejection fraction is visually estimated at 55-60%. Right Ventricle The right ventricle is normal in size and systolic function. The estimated right ventricular systoli c pressure, 39mmHg. RAP 5. Left Atrium The left atrium is normal by two-dimensional, color flow and Doppler imaging with no structural abnormalities, no thrombus formation present. Right Atrium The right atrium is normal by two-dimensional imaging, color flow and Doppler imaging with no struct ural abnormalities, no thrombus formation present. Atrial Septum The interatrial septum appears normal with no evidence of a shunt. Aorta The aorta is normal by two-dimensional, color flow and Doppler interrogation. Mitral Valve The mitral valve is normal by two-dimensional, color flow and Doppler interrogation. There is mild t o moderate mitral valve regurgitation. Aortic Valve The aortic valve is trileaflet. Mild sclerosis without stenosis. There is no significant aortic valv e regurgitation. Tricuspid Valve The tricuspid valve is normal by two-dimensional, color flow and Doppler interrogation. There is mod erate tricuspid valve regurgitation. Pulmonic Valve There is no significant pulmonic valve regurgitation. Vessels The pulmonary artery appears normal. The inferior vena cava pulmonary and hepatic veins appear lisandra l. Pericardium The pericardium is normal by two-dimensional imaging. There is no significant pericardial effusion. CONCLUSIONS Indication: Elevated BNP, Syncope Normal LV size and function. Estimated EF 55-60% Normal RV size and function. Estimated RVSP 39mmHg. Mild to moderate MR, Moderate TR. Mild AV sclerosis without stenosis. Alberto Woodson (Electronically Signed) Final Date: 06 May 2024 17:12
--- NOTE | 2024-05-05 19:43 | PC.NURSE ---
PT IN DIALYSIS AT THIS TIME
--- NOTE | 2024-05-05 20:58 | PD.NEPHCONS ---
History of Present Illness Data of Consult Consult date: 05/05/24 Requesting Physician: Mitesh Chu DO Primary Care Provider: Arvind Romano MD Consult Narrative Reason for consult: ESRD, hyperkalemia-need for dialysis History of present illness: Mr. 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 Patient apparently has been missing significant amount of dialysis sessions. Last month he skipped to 10 days in a row. I had a long conversation with the patient and he finally agreed to come twice weekly to dialysis. He skipped last Sunday and went for dialysis today and predialysis patient was altered and had syncopal type of episode that dialysis nurse called paramedics and he was sent to the hospital. In the emergency department --WBC 4, hemoglobin 10, platelets 72 sodium 132, potassium 6, bicarbonate 17.9, BUN 112, creatinine 6.9, blood sugar 300, calcium 9.2, magnesium 2.8, AST 49, ALT 67, alk phos 523, BNP 873, albumin 4.3 urinalysis shows 3+ protein/1+ glucose, 6 RBCs. Urine tox screen negative chest x-ray showed moderate CHF. Blood sugar 277, blood pressure 198/97, heart rate 68. His home medications included allopurinol, Lipitor, Plavix, folic acid, furosemide, gabapentin, hydralazine, Keppra, insulin, lisinopril, Protonix, Nydia-Seun, tamsulosin (not quite sure if he is taking all of them) cc:: cc: Mitesh Chu DO Review of Systems Review of Systems Narrative Review of Systems: Patient denies any chest pain. Admits to some shortness of breath. Denies any nausea, vomiting. He has significant weakness. Denied any depression although he seems to have some psychological imbalance. Past Medical History Past Medical History NEUROLOGIC: Positive Neurological Disorders, Cerebrovascular Accident and Seizures CARDIAC: Positive Cardiac Disorders, Hypercholesterolemia, Congestive Heart Failure, Edema and Hypertension RESPIRATORY: Positive Pneumonia; Negative Chronic Obstructive Pulmonary Disease (COPD) GASTROINTESTINAL: Positive Gastrointestinal Disorders, Pancreatitis and Gastroesophageal Reflux Disease; Negative Hepatitis GENITOURINARY: Positive Genitourinary Disorders, Renal Disease, Dialysis and Benign Prostatic Hyperplasia MUSCULOSKELETAL: Positive Musculoskeletal Disorders and Gout ENDOCRINE: Positive Endocrine Disorders and Diabetes Mellitus Type 2; Negative Diabetes Mellitus Type 1 HEMATOLOGIC: Positive Blood Disorders and Anemia PSYCHO/SOCIAL: Positive Recreational Drug Use and Anxiety OTHER HISTORY: Positive Hospitalization, Shingles, Chicken Pox and Measles; Negative Autoimmune Disease, Blood Transfusions, Blood Transfusion Reaction, Anesthesia Reactions or Cancer Family History FAMILY HISTORY: Negative Family Psychiatric Problems, Family Respiratory Disorders, Family Cardiac Disorders, Family Gastrointestinal Problems, Family Cancer, Family Surgery or Family Anesthesia Reaction Social History SMOKING STATUS: Never smoker SUBSTANCE USE: does not use Meds Home Medications and Allergies Home Medications ?Medication ?Instructions ?Recorded ?Confirmed ?Type allopurinol 100 mg tablet 100 mg PO QDAY 10/31/22 02/11/24 History tamsulosin 0.4 mg capsule 0.4 mg PO QDAY 10/31/22 02/11/24 History folic acid 1 mg tablet 1 mg PO QDAY 12/19/23 02/11/24 History furosemide 40 mg tablet 40 mg PO QAM 12/19/23 02/11/24 History gabapentin 400 mg capsule 400 mg PO BID 12/19/23 02/11/24 History vitamin B complex-vitamin C-folic 1 tab PO QDAY 12/19/23 02/11/24 History acid 0.8 mg tablet (Nydia-Seun) insulin glargine 100 unit/mL (3 25 unit subcut QA 02/11/24 02/11/24 History mL) subcutaneous pen (Lantus Solostar U-100 Insulin) lisinopril 5 mg tablet 5 mg PO QDAY 02/11/24 02/11/24 History Allergies Allergy/AdvReac Type Severity Reaction Status Date / Time No Known Allergies Allergy Verified 12/25/23 13:27 Exam Vital Signs Temp Pulse Resp BP Pulse Ox O2 Del Method 35.9 C L 68 18 198/97 H 96 Room Air 05/05/24 19:18 05/05/24 20:45 05/05/24 19:18 05/05/24 20:45 05/05/24 19:18 05/05/24 18:05 Narrative Exam GENERAL APPEARANCE: Patient currently seen in dialysis. Facial edema noted CARDIOVASCULAR: Heart regular, no murmurs LUNGS/CHEST: Chest clear to auscultation. No rales, rhonchi, wheezing ABDOMEN: Soft, nontender, nondistended. No masses. Normal bowel sounds. EXTREMITIES: No edema, clubbing or cyanosis. SKIN: Skin exam normal without any rashes. Left arm AV fistula MUSCULOSKELETAL: In bed NEUROLOGICAL : No neurological deficits. Alert and awake Results Labs 05/05/24 16:06 05/05/24 16:06 Labs: Short CBC 05/05/24 Range/Units 16:06 WBC 4.0 (3.8-10.6) Thou/mm3 Hgb 10.0 L (13.5-16.0) g/dL Hct 29.9 L (41.0-53.0) % Plt Count 72 L (140-440) Thou/mm3 BMP 05/05/24 16:06 Sodium 132 L Potassium 6.0 H Chloride 100 Carbon Dioxide 17.9 L BUN 112 H* Creatinine 6.9 H* Glucose 300 H Calcium 9.2 Cardiac Enzymes 05/05/24 Range/Units 16:06 Troponin I 0.034 (0.0-0.045) ng/mL Liver Function 05/05/24 Range/Units 16:06 Total Bilirubin 0.6 (0.3-1.2) mg/dL AST 49 H (0-34) U/L ALT 67 H (10-49) U/L Alkaline Phosphatase 523 H (46-116) U/L Albumin 4.3 (3.4-4.8) gm/dL Urine 05/05/24 Range/Units 15:57 Urine Color Yellow (Lt Yel-Yel) Urine Clarity Hazy (Clear/Hazy) Urine pH 5.5 (5.0-7.0) Ur Specific [place] 1.021 (1.001-1.035) Urine Protein 3+ A (Neg - Trace) Urine Glucose (UA) 1+ A (Negative) Assessment & Plan Additional Assessment & Plan Additional Plan: Mr. Howard is a 69-year-old male with history of ESRD presented with hyperkalemia,syncopal episode. # ESRD secondary to diabetic/hypertensive nephrosclerosis. Patient skipped dialysis last Sunday. Noted severe azotemia. Ordered emergency dialysis. Patient currently seen on dialysis. Tolerating dialysis without any problems. Hemodialysis for 3 hours, 2K, ultrafiltration 1 L, Epogen 6000, no heparin ordered. Plan of care discussed with the dialysis nurse. Please see dialysis flowsheet for further details. Patient might need extra session tomorrow if azotemia persists. #s/p AV fistula placement on September 27, 2023 # Hyperkalemia On dialysis # Hypertension resume home medications # Uremic encephalopathy -will monitor closely # metabolic acidosis on dialysis Conditions/diseases to be treated by primary team: # Thrombocytopenia # Seizure disorder # Remote Hx of Alcohol use disorder # Hx of CVA # Dm2 controlled-not optimal # Hyperlipidemia # hypothyroidism Thank you Rodríguez for allowing me to participate in the care of Mr. Freedman. I will be away on vacation 05/06/2024 through 05/10/2024. Dr Navas will be covering for me.
--- NOTE | 2024-05-05 21:34 | PC.NURSE ---
BP elevated. Dr Hathaway order clonodine 0.2 PoO X1.
[2024-05-05] MEDS: cloNIDine HCL 0.1 MG TABLET 0.2 MG PO (21:39)
--- NOTE | 2024-05-05 22:55 | PC.NURSE ---
PT RETURNED FROM DIALYSIS, PT PLACED IN ROOM 17. REPORT RECEIVED FROM JAYDEN FOUNTAIN.
[2024-05-05] MEDS: GABAPENTIN 300 MG CAPSULE PO (23:16)
[2024-05-05] MEDS: ATORVASTATIN CALCIUM 20 MG TABLET 80 MG PO (23:16)
[2024-05-05] MEDS: levETIRAcetam 250 MG TABLET 500 MG PO (23:16)
--- NOTE | 2024-05-05 23:24 | PC.NURSE ---
SPOKE WITH RESIDENT DR. MALDONADO, INFORMED DR. ALCAZAR JUST RETURNED FROM DIALYSIS AND MEDS ORDERED EARLIER WERE NOT GIVEN. PER DR. MALDONADO OKAY TO GIVE LASIX 40MG PO AND EPOETIN 10,000 UNITS SC.
--- NOTE | 2024-05-05 23:32 | PC.NURSE ---
EPOETIN NOT AVAILABLE IN [facility] MADE AWARE.
[2024-05-05] MEDS: Furosemide 40 MG TABLET PO (23:33)
[2024-05-05] MEDS: INSULIN GLARGINE (Lantus) 5 UNIT/0.05 ML (PER 5 UNITS) 15 UNIT SC (23:36)
--- NOTE | 2024-05-05 23:54 | PC.NURSE ---
PT REQUESTING FOOD. PT GIVEN SANDWICH AND CHIPS.
[2024-05-06] VITALS (9 sets, daily range): BP systolic 136–159; BP diastolic 65–82; PULSE 63–70; RESP 12–95; TEMP 36.6–37.1; O2SAT 94–100
[2024-05-06 04:45] LABS: Basophils % (Auto) 1 % (0-2.5); Eosinophils # (Auto) 0.1 Thou/mm3 (0.0-0.5); Eosinophils % (Auto) 3 % (0-10); Hematocrit 26.1 % (41.0-53.0); Immature Granulocytes % (Auto) 0 % (0-0); Immature Granulocytes Auto 0.01 Thou/mm3 (0.00-0.00); Lymphocytes % (Auto) 28 % (10-50); Mean Corpuscular HGB Conc 34.1 g/dl (31.0-37.0); Mean Corpuscular Hemoglobin 30.3 pg (25.0-35.0); Mean Corpuscular Volume 89 fL (80-100); Monocytes # (Auto) 0.4 Thou/mm3 (0.0-0.8); Monocytes % (Auto) 11 % (0-12); Neutrophils % (Auto) 57 % (37-80); Nucleated Red Blood Cell % 0 /100 WBC (0); RDW Standard Deviation 47.8 fL (35.1-43.9); Red Blood Count 2.94 Miln/mm3 (4.50-5.90); White Blood Count 3.6 Thou/mm3 (3.8-10.6)
[2024-05-06 04:53] LABS: Hemoglobin 8.9 g/dL (13.5-16.0); Platelet Count 73 Thou/mm3 (140-440)
[2024-05-06 05:08] LABS: Slide Review Platelets confirmed
[2024-05-06 05:14] LABS: Alanine Aminotransferase 53 U/L (10-49); Albumin, Serum 3.7 gm/dL (3.4-4.8); Albumin/Globulin Ratio 1.2 (1.2-2.2); Alkaline Phosphatase 457 U/L (46-116); Anion Gap 9 (7-16); Aspartate Amino Transferase 36 U/L (0-34); BUN/Creatinine Ratio 11 Ratio (12-20); Bilirubin,Total 0.9 mg/dL (0.3-1.2); Blood Urea Nitrogen 47 mg/dL (9-23); Calcium (Corrected) 9.2 mg/dL (8.5-10.1); Carbon Dioxide 26.3 mMol/L (20.0-31.0); Cardiac Risk Estimate 2.9 RATIO (4.0-6.7); Chloride 100 mMol/L (98-107); Cholesterol 107 mg/dL (132-200); Estimated Creatinine Clearance 15.8 mL/min (>60); Glucose 247 mg/dL (74-106); HDL Cholesterol 37 mg/dL (40-60); LDL Cholesterol,Calculated 34 mg/dL (0-130); Magnesium 2.1 mg/dL (1.6-2.6); Osmolality,Calculated 290 (275-295); Phosphorous 3.8 mg/dL (2.4-5.1); Sodium 135 mMol/L (136-145); Thyroid Stimulating Hormone 0.69 uIU/mL (0.55-4.78); Total Protein 6.7 gm/dL (5.7-8.2); Triglycerides 179 mg/dL (30-150); eGFR 15 See Note
[2024-05-06 05:16] LABS: Creatinine (Component) 4.1 mg/dL (0.6-1.3)
--- NOTE | 2024-05-06 08:00 | PC.NURSE ---
In to assess pt. Pt resting quietly at this time without any complaints. Orders received and initiated, call light is within reach. Plan of care ongoing.
[2024-05-06] MEDS: GABAPENTIN 300 MG CAPSULE PO (08:14)
[2024-05-06] MEDS: CLOPIDOGREL BISULFATE 75 MG TABLET PO (08:15)
[2024-05-06] MEDS: Furosemide 40 MG TABLET PO (08:15)
--- NOTE | 2024-05-06 08:15 | PC.NURSE ---
breakfast tray provided.
[2024-05-06] MEDS: PANTOPRAZOLE 40 MG TABLET PO (08:16)
[2024-05-06] MEDS: levETIRAcetam 250 MG TABLET 500 MG PO (08:16)
[2024-05-06] MEDS: INSULIN LISPRO (AdmeLOG) 1 UNIT/0.01 ML UNIT 3 UNIT SC ×2 (08:19→12:18)
[2024-05-06] MEDS: allopurinoL 100 MG TABLET PO (09:50)
[2024-05-06] MEDS: INSULIN LISPRO (AdmeLOG) 1 UNIT/0.01 ML UNIT SC (12:18)
--- NOTE | 2024-05-06 13:46 | ESDS_ITS ---
<Statement entered by Papa Basilio MD - 05/11/24 16:29> I reviewed above note and agree with findings and plans. I have also personally examined the patient with medicine team and went over assessment and plan with medical team including internal medicine physician and resident physician. <Statement entered by Lencho Arriaza DO - 05/06/24 20:07> Senior attestation: Patient was examined and case was reviewed with team including attending physician. Note reviewed, I agree with most of its contents and agree with the patient's care. Lencho Arriaza DO PGY-3 Planned Discharge Date 05/06/24 DS: Providers Provider Date of admission: 05/05/24 18:23 Primary care physician: Arvind Romano MD Admitting Provider: Mitesh Chu DO Attending Provider on Admission: Mitesh Chu DO Consults: 05/05/24 17:41 Consult to Nephrology Stat Comment: Consulting Provider: Shelby Hathaway 05/05/24 19:21 Referral Physical Therapy Routine Comment: Physician Instructions: Attending Provider on DC: Papa Basilio MD Discharging Provider: Papa Basilio MD DS: Diagnosis Problem List Completed Was Problem List Reviewed/Reconciled?: Yes Hospital Course Hospital Course Hospital course: The patient is a 69-year-old male with a past medical history of hypertension, hyperlipidemia, diabetes, ESRD on dialysis M/F, seizure disorder, CVA who was brought into the ED on 05/05/2024 after he was said to have this syncopal episode prior to dialysis. Per patient, he denies fainting and states that he only felt unsteady for a bit but family members are convinced that the patient had a syncopal episode and insisted that he be brought in to ED for generalized weakness. In the ED, the patient was afebrile, saturating 96% on room air. Lab values were reflective of ESRD status. CXR showed pulmonary vascular congestion consistent with moderate CHF. 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 Echocardiogram was ordered, results to be followed-up as an outpatient Today, 05/06/2024 the patient had a session of hemodialysis with net removal of 1L. Syncope has been ruled out, he is clinically and hemodynamically stable, medically cleared for discharge. He is recommended to follow up with his primary care provider within 1 week of discharge and package sealer machine for scheduled outpatient dialysis. #Syncope-ruled out #Generalized weakness #ESRD on M/F #History of hypertension #History of type II DM Case was discussed with senior resident Dr Arriaza PGY-3 and attending physician, Dr Praful Delgado MD PGY-1 Status at Discharge Overall status at discharge: patient is back to baseline Time Spent with Patient Time attestation: Total time spent providing and/or coordinating discharge services:more than 30minutes Exam Vital Signs Temp Pulse Resp BP Pulse Ox O2 Del Method 98.5 F 66 15 144/70 H 100 Room Air 05/06/24 12:49 05/06/24 12:49 05/06/24 12:49 05/06/24 12:49 05/06/24 12:49 05/06/24 12:49 Narrative Exam GENERAL: AAOX3 NEURO: DIVERSITY INTERN grossly intact, moves extremities x4 HEENT: Moist mucosa. Eyes open, symmetrical, & clear CARDIO: No chest pain on palpation. Heart RRR, no obvious murmurs PULM: No noted coughing/dyspnea. Crackles bilaterally-significantly improved GI: Abdomen soft, nondistended, no pain on palpation. BSx4 URO/WATER ENGINEER:: No further abnormalities noted SKIN/MSK/EXT: Bilateral pitting edema 1+. AV fistula noted on left arm Discharge Plan Plan Patient Disposition: HOME (Self Care) Patient condition on transfer: Stable Care Plan Goals: Follow up with PCP within one week of discharge Follow up with nephrology and continue dialysis sessions as scheduled Continue all medications as prescribed Prescriptions/Referrals Prescriptions/Med Rec: No Action insulin glargine [Lantus Solostar U-100 Insulin] 100 unit/mL (3 mL) insulin pen 27 unit subcut QPM Qty: 15 3RF atorvastatin 80 mg tablet 80 mg PO QPM Qty: 30 2RF clopidogrel [Plavix] 75 mg tablet 75 mg PO QDAY Qty: 30 2RF hydralazine 10 mg tablet 10 mg PO BID PRN (Reason: hypertension) Qty: 60 3RF Rx Instructions: For BP > 170/90 levetiracetam 500 mg tablet 500 mg PO BID Qty: 60 3RF insulin lispro [Admelog U-100 Insulin lispro] 100 unit/mL solution 6 unit subcut TID Qty: 10 3RF furosemide 40 mg Tablet 40 mg PO QAM gabapentin 400 mg Capsule 400 mg PO BID folic acid 1 mg Tablet 1 mg PO QDAY Nydia-Seun 0.8 mg Tablet 1 tab PO QDAY insulin glargine [Lantus Solostar U-100 Insulin] 100 unit/mL (3 mL) Insulin Pen 25 unit SUBCUT QAM lisinopril 5 mg Tablet 5 mg PO QDAY pantoprazole 40 mg Tablet,Delayed Release (Dr/Ec) 40 mg PO QDAY Qty: 0 0RF allopurinol 100 mg tablet 100 mg PO QDAY Patient Comments: TAKE ONE TABLET BY MOUTH EVERY DAY tamsulosin 0.4 mg capsule 0.4 mg PO QDAY Patient Comments: TAKE ONE CAPSULE BY MOUTH EVERY DAY FOR PROSTATE Referrals: Arvind Romano MD [Primary Care Provider] - Patient/Caregiver Discharge Instructions Print Language: Mongolian Stand Alone Forms: [facility] Award Info., Patient Portal Info Letter Discharge Order Discharge Orders: Discharge (Routine); Ordered 05/06/24 Ordered By: Nette Delgado Quality Discharge Quality Measures VTE prophylaxis
== END 2024-05-06 16:15 | disposition home or self-care (01) ==
LOC: SERX 17:43 → SERHOLD 18:54
PROVIDERS: Registered Nurse General Practice; Admitting Provider Student in an Organized Health Care Education/Training Program; Emergency Provider Emergency Medicine; PCP Family Medicine; Visit Provider Internal Medicine Nephrology
DX: R53.1 Weakness (principal); N18.6 End stage renal disease; K21.9 Gastro-esophageal reflux disease without esophagitis; Z79.02 Long term (current) use of antithrombotics/antiplatelets; I50.9 Heart failure, unspecified; I13.2 Hypertensive heart and chronic kidney disease with heart failure and with stage 5 chronic kidney disease, or end stage renal disease; G93.49 Other encephalopathy; G89.29 Other chronic pain; G40.909 Epilepsy, unspecified, not intractable, without status epilepticus; E87.5 Hyperkalemia; E87.20 Acidosis, unspecified; E78.00 Pure hypercholesterolemia, unspecified; E11.22 Type 2 diabetes mellitus with diabetic chronic kidney disease; E03.9 Hypothyroidism, unspecified; D69.6 Thrombocytopenia, unspecified; Z86.73 Personal history of transient ischemic attack (TIA), and cerebral infarction without residual deficits
CPT/HCPCS: 36415; 71045; 80053; 80061; 80307; 81001; 83615; 83735; 83880; 84100; 84443; 84484; 85025; 85610; 85730; 93005; 93306; 99285; G0378; J0612; J1815; A9270